=== PATIENT | male | born 1955 | race Caucasian/White ===

== ENCOUNTER 2022-06-30 08:21 | Outpatient (CLI) | payer MEDICARE, SELFPAY | END 2022-06-30 08:22 | disposition home or self-care (01) | LOC: NFLDREF 07-01 08:34 | PROVIDERS: PCP Internal Medicine; Referring Provider Internal Medicine; Visit Provider Internal Medicine | DX: Z00.00 Encounter for general adult medical examination without abnormal findings (principal); E78.5 Hyperlipidemia, unspecified; Z12.5 Encounter for screening for malignant neoplasm of prostate | CPT/HCPCS: 80053; 80061; 84153 ==

== ENCOUNTER 2023-08-12 08:46 | Outpatient (CLI) | payer MEDICARE, SELFPAY | END 2023-08-12 08:47 | disposition home or self-care (01) | LOC: NFLDREF 08-16 15:13 | PROVIDERS: PCP Internal Medicine; Referring Provider Internal Medicine; Visit Provider Internal Medicine | DX: Z00.00 Encounter for general adult medical examination without abnormal findings (principal); E78.5 Hyperlipidemia, unspecified; Z12.5 Encounter for screening for malignant neoplasm of prostate | CPT/HCPCS: 80053; 80061; G0103 ==

== ENCOUNTER 2024-11-04 08:32 | Outpatient (CLI) | payer MEDICARE, SELFPAY | END 2024-11-04 08:33 | disposition home or self-care (01) | LOC: NFLDREF 11-09 10:54 | PROVIDERS: PCP Internal Medicine; Referring Provider Internal Medicine; Visit Provider Internal Medicine | DX: Z12.5 Encounter for screening for malignant neoplasm of prostate (principal); E78.5 Hyperlipidemia, unspecified | CPT/HCPCS: 80053; 80061; G0103 ==